=== PATIENT | male | born 1930 | race Caucasian/White ===

== ENCOUNTER 2018-04-23 14:02 | Inpatient (IN) | payer MEDICARE, OTHER ==
[2018-04-23 15:41] LABS: BASO # 0.1 10^3/uL (0.0-0.2); BASO % 0.8 % (0.0-1.0); EOS # 0.2 10^3/uL (0.0-0.50); EOS % 3.3 % (0.0-3.0); HEMATOCRIT 42.1 % (42.0-52.0); HEMOGLOBIN 13.8 g/dl (13.5-17.5); IMMATURE GRANULOCYTE % 0.2 % (0-3.0); LYMPH # 1.7 10^3/uL (1.5-4.5); LYMPH % 24.8 % (24.0-44.0); MEAN CORPUSCULAR HEMOGLOBIN 30.5 pg (27.0-33.0); MEAN CORPUSCULAR HGB CONC 32.8 g/dl (32.0-36.5); MEAN CORPUSCULAR VOLUME 92.9 fl (80.0-96.0); MONO # 0.8 10^3/uL (0.0-0.8); MONO % 11.3 % (0.0-5.0); NEUTROPHILS % 59.6 % (36.0-66.0); PLATELET COUNT, AUTOMATED 156 10^3/uL (150-450); RED BLOOD COUNT 4.53 10^6/uL (4.30-6.10); WHITE BLOOD COUNT 6.7 10^3/uL (4.0-10.0)
[2018-04-23 15:54] LABS: INR 1.68; PROTHROMBIN TIME 20.1 SECONDS (12.1-14.4)
[2018-04-23 15:55] LABS: PARTIAL THROMBOPLASTIN TIME 31.5 SECONDS (25.4-37.6)
[2018-04-23 16:11] LABS: ALBUMIN 3.4 GM/DL (3.2-5.2); ALBUMIN/GLOBULIN RATIO 0.97 (1.00-1.93); ALKALINE PHOSPHATASE 92 U/L (45-117); ALT/SGPT 29 U/L (12-78); ANION GAP 6 MEQ/L (8-16); AST/SGOT 27 U/L (7-37); BILIRUBIN,DIRECT 0.2 MG/DL (0.0-0.2); BILIRUBIN,TOTAL 0.8 MG/DL (0.2-1.0); BLOOD UREA NITROGEN 33 MG/DL (7-18); CALCIUM LEVEL 8.7 MG/DL (8.8-10.2); CARBON DIOXIDE LEVEL 29 MEQ/L (21-32); CHLORIDE LEVEL 108 MEQ/L (98-107); CPK CREATINE PHOSPHOKINASE 89 U/L (39-308); CREATININE FOR GFR 1.65 MG/DL (0.70-1.30); GLOMERULAR FILTRATION RATE 42.4 (>35); GLUCOSE, FASTING 116 MG/DL (70-100); POTASSIUM SERUM 4.1 MEQ/L (3.5-5.1); SODIUM LEVEL 143 MEQ/L (136-145); TOTAL PROTEIN 6.9 GM/DL (6.4-8.2); TROPONIN I 0.02 NG/ML (< 0.10)
[2018-04-23 16:12] LABS: CK-MB VALUE MASS 1.9 NG/ML (<3.6); MB/CK RELATIVE INDEX 2.13 (< OR =4)
[2018-04-23] MEDS: METOPROLOL SUCC (TopROL XL) 50MG **XL** TAB PO (20:33)
[2018-04-23] MEDS: ATORVASTATIN 20 MG TAB PO (20:34)
[2018-04-23] MEDS: WARFARIN SOD 5 MG TAB PO (20:34)
[2018-04-23] MEDS ORDERED: VALSARTAN 80 MG TAB (DIOVAN) PO (21:00)
[2018-04-23 22:55] LABS: MAGNESIUM LEVEL 1.8 MG/DL (1.8-2.4)
[2018-04-23] MEDS: NS 1,000 ML IV (22:58)
[2018-04-24] MEDS: MAG SULF 1GM/100ML (MAG RUN) 1 GM in APPROPRIATE DILUENT 1 EA IV (00:07)
[2018-04-24 05:27] LABS: BASO % 0.6 % (0.0-1.0); EOS # 0.2 10^3/uL (0.0-0.50); EOS % 3.4 % (0.0-3.0); IMMATURE GRANULOCYTE % 0.2 % (0-3.0); LYMPH # 1.8 10^3/uL (1.5-4.5); MEAN CORPUSCULAR HEMOGLOBIN 30.1 pg (27.0-33.0); MEAN CORPUSCULAR HGB CONC 33.3 g/dl (32.0-36.5); MEAN CORPUSCULAR VOLUME 90.3 fl (80.0-96.0); MONO # 0.8 10^3/uL (0.0-0.8); MONO % 11.5 % (0.0-5.0); NEUTROPHILS # 3.7 10^3/uL (1.8-7.7); NEUTROPHILS % 56.3 % (36.0-66.0); PLATELET COUNT, AUTOMATED 142 10^3/uL (150-450); RED BLOOD COUNT 4.32 10^6/uL (4.30-6.10); RED CELL DISTRIBUTION WIDTH 12.9 % (11.5-14.5); WHITE BLOOD COUNT 6.5 10^3/uL (4.0-10.0)
[2018-04-24 05:35] LABS: INR 1.71; PROTHROMBIN TIME 20.4 SECONDS (12.1-14.4)
[2018-04-24 05:51] LABS: ANION GAP 9 MEQ/L (8-16); BLOOD UREA NITROGEN 30 MG/DL (7-18); CALCIUM LEVEL 8.4 MG/DL (8.8-10.2); CARBON DIOXIDE LEVEL 23 MEQ/L (21-32); CHLORIDE LEVEL 110 MEQ/L (98-107); CREATININE FOR GFR 1.25 MG/DL (0.70-1.30); GLOMERULAR FILTRATION RATE 58.4 (>35); GLUCOSE, FASTING 105 MG/DL (70-100); POTASSIUM SERUM 4.1 MEQ/L (3.5-5.1); SODIUM LEVEL 142 MEQ/L (136-145)
[2018-04-24] MEDS: FEBUXOSTAT 40 MG TABLET (ULORIC) PO (09:47)
[2018-04-24] MEDS: NS 1,000 ML IV (12:35)
[2018-04-24] MEDS: CALCIUM CARBONATE 500 MG CHEW U/D PO (12:40)
[2018-04-24] MEDS: WARFARIN SOD 2 MG TAB PO (17:35)
[2018-04-24] MEDS: METOPROLOL SUCC (TopROL XL) 50MG **XL** TAB PO (21:00)
[2018-04-24] MEDS: ATORVASTATIN 20 MG TAB PO (21:31)
[2018-04-25] MEDS: NS 1,000 ML IV (00:30)
[2018-04-25 05:57] LABS: BASO # 0.1 10^3/uL (0.0-0.2); BASO % 0.7 % (0.0-1.0); EOS # 0.2 10^3/uL (0.0-0.50); EOS % 3.2 % (0.0-3.0); HEMATOCRIT 38.4 % (42.0-52.0); HEMOGLOBIN 12.8 g/dl (13.5-17.5); IMMATURE GRANULOCYTE % 0.1 % (0-3.0); LYMPH # 2.1 10^3/uL (1.5-4.5); LYMPH % 30.1 % (24.0-44.0); MEAN CORPUSCULAR HGB CONC 33.3 g/dl (32.0-36.5); MEAN CORPUSCULAR VOLUME 90.1 fl (80.0-96.0); MONO # 0.8 10^3/uL (0.0-0.8); MONO % 11.5 % (0.0-5.0); NEUTROPHILS # 3.8 10^3/uL (1.8-7.7); NEUTROPHILS % 54.4 % (36.0-66.0); PLATELET COUNT, AUTOMATED 122 10^3/uL (150-450); RED BLOOD COUNT 4.26 10^6/uL (4.30-6.10); RED CELL DISTRIBUTION WIDTH 12.9 % (11.5-14.5)
[2018-04-25 06:06] LABS: INR 2.04; PROTHROMBIN TIME 23.4 SECONDS (12.1-14.4)
[2018-04-25 06:19] LABS: ANION GAP 9 MEQ/L (8-16); BLOOD UREA NITROGEN 28 MG/DL (7-18); CALCIUM LEVEL 8.1 MG/DL (8.8-10.2); CARBON DIOXIDE LEVEL 23 MEQ/L (21-32); CHLORIDE LEVEL 112 MEQ/L (98-107); CREATININE FOR GFR 1.23 MG/DL (0.70-1.30); GLOMERULAR FILTRATION RATE 59.5 (>35); GLUCOSE, FASTING 104 MG/DL (70-100); POTASSIUM SERUM 4.1 MEQ/L (3.5-5.1); SODIUM LEVEL 144 MEQ/L (136-145)
[2018-04-25] MEDS: FEBUXOSTAT 40 MG TABLET (ULORIC) PO (09:47)
[2018-04-25] MEDS: WARFARIN SOD 2 MG TAB PO (17:27)
[2018-04-25] MEDS: METOPROLOL SUCC (TopROL XL) 50MG **XL** TAB PO (21:00)
[2018-04-25] MEDS: ATORVASTATIN 20 MG TAB PO (21:41)
[2018-04-26 06:04] LABS: BASO % 0.4 % (0.0-1.0); EOS # 0.2 10^3/uL (0.0-0.50); EOS % 3.6 % (0.0-3.0); HEMATOCRIT 38.7 % (42.0-52.0); HEMOGLOBIN 12.8 g/dl (13.5-17.5); IMMATURE GRANULOCYTE % 0.3 % (0-3.0); LYMPH # 1.7 10^3/uL (1.5-4.5); LYMPH % 24.6 % (24.0-44.0); MEAN CORPUSCULAR HEMOGLOBIN 30.3 pg (27.0-33.0); MEAN CORPUSCULAR HGB CONC 33.1 g/dl (32.0-36.5); MEAN CORPUSCULAR VOLUME 91.5 fl (80.0-96.0); MONO # 0.7 10^3/uL (0.0-0.8); NEUTROPHILS % 60.1 % (36.0-66.0); PLATELET COUNT, AUTOMATED 134 10^3/uL (150-450); RED BLOOD COUNT 4.23 10^6/uL (4.30-6.10); RED CELL DISTRIBUTION WIDTH 12.9 % (11.5-14.5); WHITE BLOOD COUNT 6.7 10^3/uL (4.0-10.0)
[2018-04-26 06:12] LABS: INR 2.44
[2018-04-26 06:22] LABS: ANION GAP 6 MEQ/L (8-16); BLOOD UREA NITROGEN 24 MG/DL (7-18); CALCIUM LEVEL 8.2 MG/DL (8.8-10.2); CARBON DIOXIDE LEVEL 25 MEQ/L (21-32); CHLORIDE LEVEL 112 MEQ/L (98-107); CREATININE FOR GFR 1.18 MG/DL (0.70-1.30); GLOMERULAR FILTRATION RATE > 60.0 (>35); GLUCOSE, FASTING 105 MG/DL (70-100); POTASSIUM SERUM 4.1 MEQ/L (3.5-5.1); SODIUM LEVEL 143 MEQ/L (136-145)
[2018-04-26] MEDS ORDERED: VALSARTAN 80 MG TAB (DIOVAN) PO (09:00)
[2018-04-26] MEDS: FEBUXOSTAT 40 MG TABLET (ULORIC) PO (09:09)
[2018-04-26] MEDS: WARFARIN SOD 2 MG TAB PO (18:10)
[2018-04-26] MEDS: ATORVASTATIN 20 MG TAB PO (21:05)
[2018-04-26] MEDS: METOPROLOL SUCC (TopROL XL) 50MG **XL** TAB PO (21:05)
[2018-04-27 05:56] LABS: BASO % 0.6 % (0.0-1.0); EOS # 0.2 10^3/uL (0.0-0.50); EOS % 3.1 % (0.0-3.0); HEMATOCRIT 38.7 % (42.0-52.0); HEMOGLOBIN 12.9 g/dl (13.5-17.5); IMMATURE GRANULOCYTE % 0.3 % (0-3.0); LYMPH # 1.7 10^3/uL (1.5-4.5); LYMPH % 24.8 % (24.0-44.0); MEAN CORPUSCULAR HEMOGLOBIN 30.1 pg (27.0-33.0); MEAN CORPUSCULAR HGB CONC 33.3 g/dl (32.0-36.5); MEAN CORPUSCULAR VOLUME 90.4 fl (80.0-96.0); MONO # 0.8 10^3/uL (0.0-0.8); MONO % 11.4 % (0.0-5.0); NEUTROPHILS # 4.1 10^3/uL (1.8-7.7); NEUTROPHILS % 59.8 % (36.0-66.0); PLATELET COUNT, AUTOMATED 135 10^3/uL (150-450); RED BLOOD COUNT 4.28 10^6/uL (4.30-6.10); RED CELL DISTRIBUTION WIDTH 12.9 % (11.5-14.5); WHITE BLOOD COUNT 6.9 10^3/uL (4.0-10.0)
[2018-04-27 06:04] LABS: INR 2.62; PROTHROMBIN TIME 28.6 SECONDS (12.1-14.4)
[2018-04-27 06:14] LABS: ANION GAP 8 MEQ/L (8-16); BLOOD UREA NITROGEN 24 MG/DL (7-18); CALCIUM LEVEL 8.3 MG/DL (8.8-10.2); CARBON DIOXIDE LEVEL 24 MEQ/L (21-32); CHLORIDE LEVEL 110 MEQ/L (98-107); CREATININE FOR GFR 1.19 MG/DL (0.70-1.30); GLOMERULAR FILTRATION RATE > 60.0 (>35); GLUCOSE, FASTING 103 MG/DL (70-100); POTASSIUM SERUM 4.1 MEQ/L (3.5-5.1); SODIUM LEVEL 142 MEQ/L (136-145)
[2018-04-27] MEDS: FEBUXOSTAT 40 MG TABLET (ULORIC) PO (08:30)
== END 2018-04-27 11:55 | disposition home or self-care (01) | DRG 69 ==
LOC: M ED 14:02 → M ED INP 20:47 → M PCU 21:30
DX: G45.9 Transient cerebral ischemic attack, unspecified (principal); N17.9 Acute kidney failure, unspecified; R00.1 Bradycardia, unspecified; I25.10 Atherosclerotic heart disease of native coronary artery without angina pectoris; I12.9 Hypertensive chronic kidney disease with stage 1 through stage 4 chronic kidney disease, or unspecified chronic kidney disease; M54.12 Radiculopathy, cervical region; E78.5 Hyperlipidemia, unspecified; R79.1 Abnormal coagulation profile; M19.90 Unspecified osteoarthritis, unspecified site; M10.9 Gout, unspecified; N18.3 Chronic kidney disease, stage 3 (moderate); E11.9 Type 2 diabetes mellitus without complications; I25.2 Old myocardial infarction; I44.7 Left bundle-branch block, unspecified; I44.0 Atrioventricular block, first degree; Z91.041 Radiographic dye allergy status; Z88.0 Allergy status to penicillin; Z88.1 Allergy status to other antibiotic agents; Z95.3 Presence of xenogenic heart valve; Z86.718 Personal history of other venous thrombosis and embolism; Z88.8 Allergy status to other drugs, medicaments and biological substances; Z95.1 Presence of aortocoronary bypass graft; Z79.01 Long term (current) use of anticoagulants; Z79.899 Other long term (current) drug therapy

== ENCOUNTER 2018-05-05 00:13 | Inpatient (IN) | payer MEDICARE, BC, OTHER ==
[2018-05-05 01:14] LABS: BASO # 0.1 10^3/uL (0.0-0.2); BASO % 0.8 % (0.0-1.0); EOS # 0.3 10^3/uL (0.0-0.50); EOS % 4.4 % (0.0-3.0); HEMOGLOBIN 12.9 g/dl (13.5-17.5); IMMATURE GRANULOCYTE % 0.2 % (0-3.0); LYMPH # 1.9 10^3/uL (1.5-4.5); LYMPH % 28.5 % (24.0-44.0); MEAN CORPUSCULAR HEMOGLOBIN 30.9 pg (27.0-33.0); MEAN CORPUSCULAR HGB CONC 33.1 g/dl (32.0-36.5); MEAN CORPUSCULAR VOLUME 93.3 fl (80.0-96.0); MONO # 0.8 10^3/uL (0.0-0.8); MONO % 11.3 % (0.0-5.0); NEUTROPHILS # 3.7 10^3/uL (1.8-7.7); NEUTROPHILS % 54.8 % (36.0-66.0); PLATELET COUNT, AUTOMATED 149 10^3/uL (150-450); RED BLOOD COUNT 4.18 10^6/uL (4.30-6.10); RED CELL DISTRIBUTION WIDTH 13.2 % (11.5-14.5); WHITE BLOOD COUNT 6.6 10^3/uL (4.0-10.0)
[2018-05-05 01:24] LABS: ANION GAP 8 MEQ/L (8-16); BLOOD UREA NITROGEN 28 MG/DL (7-18); CALCIUM LEVEL 8.7 MG/DL (8.8-10.2); CARBON DIOXIDE LEVEL 27 MEQ/L (21-32); CHLORIDE LEVEL 110 MEQ/L (98-107); CK-MB VALUE MASS 2.2 NG/ML (<3.6); CPK CREATINE PHOSPHOKINASE 126 U/L (39-308); CREATININE FOR GFR 1.39 MG/DL (0.70-1.30); GLOMERULAR FILTRATION RATE 51.7 (>35); GLUCOSE, FASTING 148 MG/DL (70-100); MAGNESIUM LEVEL 1.7 MG/DL (1.8-2.4); MB/CK RELATIVE INDEX 1.74 (< OR =4); POTASSIUM SERUM 3.8 MEQ/L (3.5-5.1); SODIUM LEVEL 145 MEQ/L (136-145); TROPONIN I 0.03 NG/ML (< 0.10)
[2018-05-05 02:00] LABS: INR 2.51; PARTIAL THROMBOPLASTIN TIME 38.2 SECONDS (25.4-37.6); PROTHROMBIN TIME 27.6 SECONDS (12.1-14.4)
[2018-05-05] MEDS: MAG SULF 1GM/100ML (MAG RUN) 1 GM in APPROPRIATE DILUENT 1 EA IV (02:00)
[2018-05-05] MEDS ORDERED: ONDANSETRON 4 MG TAB (S0181) PO (02:45)
[2018-05-05] MEDS: ATORVASTATIN 20 MG TAB PO ×2 (02:46→21:46)
[2018-05-05 05:29] LABS: HEMOGLOBIN 12.9 g/dl (13.5-17.5); MEAN CORPUSCULAR HEMOGLOBIN 30.4 pg (27.0-33.0); MEAN CORPUSCULAR HGB CONC 33.1 g/dl (32.0-36.5); MEAN CORPUSCULAR VOLUME 91.8 fl (80.0-96.0); PLATELET COUNT, AUTOMATED 162 10^3/uL (150-450); RED BLOOD COUNT 4.25 10^6/uL (4.30-6.10); RED CELL DISTRIBUTION WIDTH 13.2 % (11.5-14.5); WHITE BLOOD COUNT 7.2 10^3/uL (4.0-10.0)
[2018-05-05 05:49] LABS: ESTIMATED AVERAGE GLUCOSE 148 MG/DL (60-110); HEMOGLOBIN A1c 6.8 %
[2018-05-05 05:54] LABS: ALBUMIN 3.4 GM/DL (3.2-5.2); ALKALINE PHOSPHATASE 121 U/L (45-117); ALT/SGPT 31 U/L (12-78); ANION GAP 6 MEQ/L (8-16); AST/SGOT 33 U/L (7-37); BILIRUBIN,TOTAL 0.7 MG/DL (0.2-1.0); BLOOD UREA NITROGEN 27 MG/DL (7-18); CALCIUM LEVEL 8.5 MG/DL (8.8-10.2); CARBON DIOXIDE LEVEL 27 MEQ/L (21-32); CHLORIDE LEVEL 109 MEQ/L (98-107); GLOMERULAR FILTRATION RATE 55.9 (>35); GLUCOSE, FASTING 117 MG/DL (70-100); SODIUM LEVEL 142 MEQ/L (136-145); TOTAL PROTEIN 6.8 GM/DL (6.4-8.2)
[2018-05-05] MEDS: PHYTONADIONE 10MG/ML INJECTION (J3430) SC (09:00)
[2018-05-05] MEDS: LOSARTAN 50 MG TAB PO (09:11)
[2018-05-05] MEDS: FEBUXOSTAT 40 MG TABLET (ULORIC) PO (09:12)
[2018-05-05] MEDS: D5W/0.9% SODIUM CHLORIDE 1,000 ML IV ×2 (09:13→21:48)
[2018-05-05] MEDS: hydrALAZINE INJ 20 MG/ML VIAL IV (12:42)
[2018-05-05 12:44] LABS: TYPE AND SCREEN 1
[2018-05-05 15:10] LABS: INR 1.66; PROTHROMBIN TIME 19.9 SECONDS (12.1-14.4)
[2018-05-05] MEDS ORDERED: ISOVUE-300 61% 50ML VIAL (Q9967) As Ordered (15:17)
[2018-05-05] MEDS ORDERED: BACITRACIN PWD 50,000 UNITS VIAL As Ordered (15:17)
[2018-05-05] MEDS ORDERED: AMIODARONE HCL 150 MG/100 ML PREMIXED BAG (NEXTERONE) As Ordered (15:17)
[2018-05-05] MEDS ORDERED: ceFAZolin 2 GM/D5W 50 ML IV BAG (J0690 PER 500MG) As Ordered (16:58)
[2018-05-05] MEDS ORDERED: LIDOCAINE 2% INJ 100 MG/5 ML SDV (FOR ANES.) As Ordered (18:02)
[2018-05-05] MEDS ORDERED: PROPOFOL 500 MG/50 ML VIAL As Ordered (18:03)
[2018-05-05] MEDS ORDERED: fentaNYL 100 MCG/2 ML INJECTION (J3010) As Ordered (18:03)
[2018-05-05] MEDS ORDERED: MIDAZOLAM INJ 2 MG/2 ML VIAL (J2250) As Ordered (18:03)
[2018-05-05] MEDS ORDERED: ONDANSETRON 4MG/2ML VIAL (J2405) As Ordered (19:09)
[2018-05-05] MEDS: LIDOCAINE 1% SDV INJ 30 ML VIAL As Ordered (19:51)
[2018-05-05] MEDS ORDERED: PERCOCET 5MG/325MG TAB As Ordered (20:30)
[2018-05-05] MEDS: PERCOCET 5MG/325MG TAB PO (20:38)
[2018-05-05] MEDS: LR 1,000 ML IV (20:45)
[2018-05-05] MEDS ORDERED: fentaNYL 100 MCG/2 ML INJECTION (J3010) IV (20:45)
[2018-05-05] MEDS ORDERED: ONDANSETRON 4MG/2ML VIAL (J2405) IV (20:45)
[2018-05-06] MEDS: ceFAZolin SOD 1 GM in D5W MINI-BAG PLUS 50 ML IV ×2 (03:45→12:31)
[2018-05-06 04:33] LABS: HEMATOCRIT 37.1 % (42.0-52.0); MEAN CORPUSCULAR HEMOGLOBIN 29.9 pg (27.0-33.0); MEAN CORPUSCULAR HGB CONC 32.3 g/dl (32.0-36.5); MEAN CORPUSCULAR VOLUME 92.5 fl (80.0-96.0); PLATELET COUNT, AUTOMATED 121 10^3/uL (150-450); RED BLOOD COUNT 4.01 10^6/uL (4.30-6.10); RED CELL DISTRIBUTION WIDTH 13.1 % (11.5-14.5); WHITE BLOOD COUNT 6.7 10^3/uL (4.0-10.0)
[2018-05-06 04:48] LABS: ANION GAP 6 MEQ/L (8-16); BLOOD UREA NITROGEN 22 MG/DL (7-18); CALCIUM LEVEL 8.2 MG/DL (8.8-10.2); CARBON DIOXIDE LEVEL 29 MEQ/L (21-32); CHLORIDE LEVEL 109 MEQ/L (98-107); GLOMERULAR FILTRATION RATE 55.9 (>35); GLUCOSE, FASTING 95 MG/DL (70-100); POTASSIUM SERUM 4.1 MEQ/L (3.5-5.1); SODIUM LEVEL 144 MEQ/L (136-145)
[2018-05-06] MEDS: FEBUXOSTAT 40 MG TABLET (ULORIC) PO (09:57)
[2018-05-06] MEDS: LOSARTAN 50 MG TAB PO (09:58)
[2018-05-06 10:24] LABS: INR 1.55; PROTHROMBIN TIME 18.9 SECONDS (12.1-14.4)
[2018-05-06] MEDS: ASCORBIC ACID 250 MG TAB PO ×2 (12:32→21:44)
[2018-05-06] MEDS: ACETAMINOPHEN TAB 650MG DOSE (2X325MG) PO (15:48)
[2018-05-06] MEDS: WARFARIN SOD 5 MG TAB PO (17:17)
[2018-05-06] MEDS: ATORVASTATIN 20 MG TAB PO (21:44)
[2018-05-07 05:59] LABS: HEMATOCRIT 38.4 % (42.0-52.0); HEMOGLOBIN 12.4 g/dl (13.5-17.5); MEAN CORPUSCULAR HEMOGLOBIN 29.7 pg (27.0-33.0); MEAN CORPUSCULAR HGB CONC 32.3 g/dl (32.0-36.5); MEAN CORPUSCULAR VOLUME 92.1 fl (80.0-96.0); PLATELET COUNT, AUTOMATED 122 10^3/uL (150-450); RED BLOOD COUNT 4.17 10^6/uL (4.30-6.10); WHITE BLOOD COUNT 7.1 10^3/uL (4.0-10.0)
[2018-05-07 06:11] LABS: INR 1.36
[2018-05-07 06:15] LABS: ANION GAP 7 MEQ/L (8-16); BLOOD UREA NITROGEN 20 MG/DL (7-18); CALCIUM LEVEL 8.2 MG/DL (8.8-10.2); CARBON DIOXIDE LEVEL 26 MEQ/L (21-32); CHLORIDE LEVEL 110 MEQ/L (98-107); CREATININE FOR GFR 1.23 MG/DL (0.70-1.30); GLOMERULAR FILTRATION RATE 59.5 (>35); GLUCOSE, FASTING 107 MG/DL (70-100); POTASSIUM SERUM 4.1 MEQ/L (3.5-5.1); SODIUM LEVEL 143 MEQ/L (136-145)
[2018-05-07] MEDS: BISACODYL 5 MG TAB PO (06:24)
[2018-05-07] MEDS: ASCORBIC ACID 250 MG TAB PO (08:25)
[2018-05-07] MEDS: FEBUXOSTAT 40 MG TABLET (ULORIC) PO (08:25)
[2018-05-07] MEDS: LOSARTAN 50 MG TAB PO (08:31)
== END 2018-05-07 10:47 | disposition home or self-care (01) | DRG 244 ==
LOC: M MSPAV 05-06 14:15 → M ED 00:13 → M ED INP 02:34 → M ICU 04:44
PROC: 0JH606Z Insertion of Pacemaker, Dual Chamber into Chest Subcutaneous Tissue and Fascia, Open Approach (ICD-10-PCS; principal; 2018-05-05 14:00)
PROC: 02H63JZ Insertion of Pacemaker Lead into Right Atrium, Percutaneous Approach (ICD-10-PCS; 2018-05-05 14:00)
PROC: 02HK3JZ Insertion of Pacemaker Lead into Right Ventricle, Percutaneous Approach (ICD-10-PCS; 2018-05-05 14:00)
PROC: 30233K1 Transfusion of Nonautologous Frozen Plasma into Peripheral Vein, Percutaneous Approach (ICD-10-PCS; 2018-05-05 14:00)
DX: I49.5 Sick sinus syndrome (principal); I44.7 Left bundle-branch block, unspecified; I44.0 Atrioventricular block, first degree; R55 Syncope and collapse; N18.3 Chronic kidney disease, stage 3 (moderate); M10.9 Gout, unspecified; M19.90 Unspecified osteoarthritis, unspecified site; I12.9 Hypertensive chronic kidney disease with stage 1 through stage 4 chronic kidney disease, or unspecified chronic kidney disease; E11.22 Type 2 diabetes mellitus with diabetic chronic kidney disease; E78.5 Hyperlipidemia, unspecified; I25.10 Atherosclerotic heart disease of native coronary artery without angina pectoris; Z95.1 Presence of aortocoronary bypass graft; Z95.3 Presence of xenogenic heart valve; I25.2 Old myocardial infarction; Z86.718 Personal history of other venous thrombosis and embolism; Z91.041 Radiographic dye allergy status; Z88.0 Allergy status to penicillin; Z88.1 Allergy status to other antibiotic agents; Z88.8 Allergy status to other drugs, medicaments and biological substances; Z86.73 Personal history of transient ischemic attack (TIA), and cerebral infarction without residual deficits; Z79.01 Long term (current) use of anticoagulants

== ENCOUNTER 2021-05-16 15:02 | Emergency (ER) | payer MEDICARE, BC, OTHER ==
[~2021-05-16] VITALS: Ht 177.8 cm; Wt 87.7 kg
[~2021-05-16 15:02] MED LIST: ASCO250T20 PO; ATOR80TA59 PO; COUM2TAB22 PO; FEBU40TA4 PO; LOSA50TA88; LOSA50TA88 PO; METO1TAB7 PO; METO200T28 PO; VALS1TAB67 PO; VALS40TA9 PO; WARF4TAB52 PO
[2021-05-16] MEDS ORDERED: ASPIRIN 81 MG CHEW TABLET PO ONE (15:35)
[2021-05-16 15:50] LABS: BASO # 0.1 10^3/uL (0.0-0.2); BASO % 0.9 % (0.0-1.0); EOS # 0.2 10^3/uL (0.0-0.5); EOS % 3.6 % (0.0-3.0); HEMATOCRIT 41.8 % (42.0-52.0); HEMOGLOBIN 13.6 g/dl (13.5-17.5); LYMPH # 1.5 10^3/uL (1.5-5.0); LYMPH % 23.1 % (24.0-44.0); MEAN CORPUSCULAR HEMOGLOBIN 30.4 pg (27.0-33.0); MEAN CORPUSCULAR HGB CONC 32.5 g/dl (32.0-36.5); MEAN CORPUSCULAR VOLUME 93.3 fl (80.0-96.0); MONO # 0.7 10^3/uL (0.0-0.8); MONO % 10.6 % (2.0-8.0); NEUTROPHILS # 4.1 10^3/uL (1.5-8.5); NEUTROPHILS % 61.6 % (36.0-66.0); PLATELET COUNT, AUTOMATED 187 10^3/uL (150-450); RED BLOOD COUNT 4.48 10^6/uL (4.30-6.10); WHITE BLOOD COUNT 6.6 10^3/uL (4.0-10.0)
--- NOTE | 2021-05-16 15:52 | REP ---
INDICATION: CHEST PAIN. COMPARISON: 04/23/2018 TECHNIQUE: AP view FINDINGS: The lungs are clear. The heart is not enlarged. 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 There is no failure or effusion. Since the previous study dual pacing leads have been placed. There have been no other interval changes. IMPRESSION: No active process. <Electronically signed by Taz Thompson > 05/16/21 [id number]
[2021-05-16 16:03] LABS: INR 2.46; PROTHROMBIN TIME 27.1 SECONDS (12.7-14.5)
[2021-05-16 16:20] LABS: ALBUMIN 3.6 GM/DL (3.2-5.2); BILIRUBIN,DIRECT 0.1 MG/DL (0.0-0.2); BILIRUBIN,TOTAL 0.6 MG/DL (0.2-1.0); CALCIUM LEVEL 8.3 MG/DL (8.8-10.2); CREATININE FOR GFR 1.66 MG/DL (0.70-1.30); GLOMERULAR FILTRATION RATE 41.8 (>35); POTASSIUM SERUM 4.9 MEQ/L (3.5-5.1); TOTAL PROTEIN 6.7 GM/DL (6.4-8.2)
[2021-05-16 22:16] VITALS: BP 128/56
--- NOTE | 2021-05-17 08:36 | ECGEPIP ---
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
--- NOTE | 2021-05-17 08:38 | ECGEPIP ---
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
--- NOTE | 2021-05-17 09:02 | ECGEPIP ---
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
== END 2021-05-16 22:30 | disposition home or self-care (01) ==
LOC: M ED 15:02
DX: R07.9 Chest pain, unspecified (principal); I25.2 Old myocardial infarction; E11.9 Type 2 diabetes mellitus without complications; I10 Essential (primary) hypertension; E78.5 Hyperlipidemia, unspecified; N18.30 Chronic kidney disease, stage 3 unspecified; Z86.73 Personal history of transient ischemic attack (TIA), and cerebral infarction without residual deficits; Z95.0 Presence of cardiac pacemaker; Z95.1 Presence of aortocoronary bypass graft; Z86.718 Personal history of other venous thrombosis and embolism; Z79.01 Long term (current) use of anticoagulants; Z88.8 Allergy status to other drugs, medicaments and biological substances; Z91.040 Latex allergy status; Z88.0 Allergy status to penicillin; Z88.1 Allergy status to other antibiotic agents